=== PATIENT | female | born 1950 | race Caucasian/White ===

== ENCOUNTER 2021-07-18 18:08 | Emergency (ER) | payer MEDICARE ==
[2021-07-18 18:42] LABS: Actual Bicarbonate (HCO3a) 19.1 mEq/L (22-28); Analyzer IN Cardio ER; Base Excess (BEa) -3.6 mEq/L (-2.0 to +3.0); CO2 Tension 27.1 mmHg (35.0-45.0); Calcium, Ionized (arterial) 1.11 mmol/L (1.12-1.30); Carboxyhemoglobin (COHb) 0.2 gm% (0.0-3.0); Hemoglobin (Hb) 10.7 g/dL (12.0-16.0); O2 Tension (PaO2), arterial 105.4 mmHg (> 80.0); Potassium - ABG Lab 3.27 mmol/L (3.70-5.30); pH, Arterial 7.47 (7.35-7.45)
[2021-07-18 18:44] LABS: Hemoglobin 10.4 g/dL (12.0-16.0); Mean Corpuscular HGB CONC 31.8 g/dL (32.0-36.0); Mean Corpuscular Hemoglobin 25.4 pg (27.0-31.0); Mean Corpuscular Volume 79.8 fL (78.0-98.0); Platelet Count 201 thou/uL (130-400); RBC Distribution Width 21.5 % (11.5-14.5); Red Blood Cell (RBC) Count 4.09 mill/uL (4.20-5.40); White Blood Cell (WBC) Count 11.7 thou/uL (4.8-10.8)
[2021-07-18 18:45] LABS: ALV-art Gradient 60.365 mmHg (0-20); Puncture Site LBA
[2021-07-18 19:01] LABS: Anisocytosis SLIGHT = 6-15 cells (100X) (0-5/hpf); Band 27 % (5-11); Dohle Bodies SLIGHT; Eosinophils 2 % (0-10); Hypochromia SLIGHT = 6-15 cells (100X) (0-5/hpf); Lymphocytes 4 % (21-51); MDiff Complete? YES; Monocytes 2 % (0-10); Neutrophil 64 % (42-75); Platelet Morphology Comment Appears Adequate; Polychromasia SLIGHT = 2-3 cells (100X) (0-2/hpf); Reactive Lymphocytes 1 % (0-10); Vacuoles SLIGHT
[2021-07-18 19:04] LABS: ALT (SGPT) 9 U/L (8-55); AST (SGOT) 45 U/L (5-34); Albumin 3.1 g/dL (3.4-4.8); Alkaline Phosphatase 148 U/L (40-110); Anion Gap 17 mmol/L (10-20); BUN (Urea Nitrogen) 48 mg/dL (9.8-20.1); Bilirubin, Total 0.4 mg/dL (0.2-1.2); Calc. Creatinine Clearance 0 mL/min (70-130); Calcium 9.1 mg/dL (7.8-10.44); Carbon Dioxide 23 mmol/L (23-31); Chloride 97 mmol/L (98-107); Globulin 2.8 g/dL (2.4-3.5); Glucose 73 mg/dL (80-115); Magnesium 1.9 mg/dL (1.6-2.6); Potassium 3.5 mmol/L (3.5-5.1); Protein, Total 5.9 g/dL (5.8-8.1); Sodium 133 mmol/L (136-145)
[2021-07-18 19:34] LABS: CKMB 2.5 ng/mL (0-6.6)
[2021-07-18 20:58] LABS: Acetaminophen Less than 6.0 mcg/mL (10.0-30.0); Alcohol Less than 10 mg/dL (Less than 10); Salicylate Less than 8.0 mg/dL (15.0-30.0)
[2021-07-18 23:02] LABS: Bilirubin Negative (Negative); Blood, Urine Large (Negative); Glucose, Urine (Dipstick) Negative (Negative); Ketone, Urine Negative (Negative); Leukocyte Large (Negative); Nitrite Positive (Negative); Protein, Urine (Dipstick) Negative (Neg-Trace); Specific Gravity, Urine 1.015 (1.005-1.030); Urobilinogen 0.2 mg/dL (Less than 2)
[2021-07-18 23:03] LABS: Clarity Hazy (Clear)
[2021-07-18 23:04] LABS: RBC/HPF 0-3 HPF (0-3)
[2021-07-18 23:05] LABS: Bacteria/HPF 4+ HPF (None Seen); Other Microscopic Description Less than 2 mL rec'd; Renal Epithelial 0-3 HPF (None Seen); Squamous Epithelial None Seen HPF (0-3); Transitional Epithelial 0-3 HPF (None Seen)
[2021-07-18 23:10] LABS: Amphetamine Not Detected (NotDetected); Barbiturates Screen Not Detected (NotDetected); Benzodiazepine Screen Not Detected (NotDetected); Cocaine Metabolite Screen Not Detected (NotDetected); Methadone Not Detected (NotDetected); Methamphetamine Not Detected (NotDetected); Opiate Screen Detected (NotDetected); Oxycodone Screen Not Detected (NotDetected); Phencyclidine (PCP) Not Detected (NotDetected); THC/Cannabinoid Screen Not Detected (NotDetected); Tricyclic Screen Not Detected (NotDetected)
== END 2021-07-18 22:58 | disposition short-term general hospital (02) ==
LOC: ERS 18:08
DX: N17.9 Acute kidney failure, unspecified (principal); R77.8 Other specified abnormalities of plasma proteins; R06.03 Acute respiratory distress; R41.82 Altered mental status, unspecified; E78.00 Pure hypercholesterolemia, unspecified; F17.210 Nicotine dependence, cigarettes, uncomplicated
CPT/HCPCS: 36415; 36600; 51701; 70450; 71045; 80053; 80306; 80307; 81003; 81015; 82550; 82553; 82805; 83605; 83735; 83880; 84484; 85025; 87040; 87077; 87086; 87149; 87186; 93005

== ENCOUNTER 2025-05-10 13:39 | Outpatient (CLI) | payer OTHER ==
[~2025-05-10 13:39] MED LIST: Iopamidol 370 76% 100 ML VIAL ONE
[2025-05-10 14:06] LABS: Estimated GFR - POC 37.0
== END 2025-05-10 13:40 | disposition home or self-care (01) ==
LOC: CT 13:39
PROVIDERS: ATTEND Radiology Radiation Oncology
DX: C44.329 Squamous cell carcinoma of skin of other parts of face (principal); E04.1 Nontoxic single thyroid nodule
CPT/HCPCS: 36415; 70491; 82565 ×2; Q9967